=== PATIENT | male | born 1995 | race Caucasian/White ===

== ENCOUNTER 2019-08-04 21:22 | Emergency (ER) | payer OTHER ==
[~2019-08-04] VITALS: Ht 172.7 cm; Wt 84.1 kg
[2019-08-04 22:25] LABS: INFLUENZA A AMPLIFICATION NEGATIVE (NEGATIVE); INFLUENZA B AMPLIFICATION NEGATIVE (NEGATIVE)
[2019-08-04 22:38] LABS: HEMATOCRIT 47.3 % (42.0-52.0); HEMOGLOBIN 16.7 g/dl (13.5-17.5); MEAN CORPUSCULAR HEMOGLOBIN 31.2 pg (27.0-33.0); MEAN CORPUSCULAR HGB CONC 35.3 g/dl (32.0-36.5); MEAN CORPUSCULAR VOLUME 88.4 fl (80.0-96.0); PLATELET COUNT, AUTOMATED 174 10^3/uL (150-450); RED BLOOD COUNT 5.35 10^6/uL (4.30-6.10); WHITE BLOOD COUNT 8.2 10^3/uL (4.0-10.0)
[2019-08-04 22:53] LABS: MONO REFLEX EBV COMP POSITIVE (NEGATIVE)
[2019-08-04 23:01] LABS: ATYPICAL LYMPH 36 % (0-5); LYMPHOCYTES 5 % (16-44); NEUTROPHILS 38 % (28-66); PLATELET ESTIMATE NORMAL (NORMAL)
[2019-08-04] MEDS ORDERED: IBUP-1022 PO (23:09)
[2019-08-04 23:27] VITALS: BP 138/70
== END 2019-08-04 23:29 | disposition home or self-care (01) ==
LOC: M ED 21:22
DX: B27.90 Infectious mononucleosis, unspecified without complication (principal)